=== PATIENT | female | born 1995 | race African-American/Black ===

== ENCOUNTER 2016-09-08 16:46 | Emergency (ER) | payer MEDICAID ==
[~2016-09-08] VITALS: Ht 160 cm; Wt 100.0 kg
[2016-09-08 16:47] VITALS: BP 142/78; PULSE 90; RESP 18; TEMP 98.8; O2SAT 99
--- NOTE | 2016-09-08 16:54 | PD ---
Physical Exam Time Seen by Provider: 16:53 Narrative 20 y/o female here with lower back pain for 2 days. denies injury. Denies any associated symptoms. Vital signs reviewed. Seen at triage desk. Awaiting bed placement. Data Data Last Documented VS Vital Signs Date Time Temp Pulse Resp B/P Pulse Ox O2 Delivery O2 Flow Rate FiO2 09/08/16 16:47 98.8 90 18 142/78 99 Room Air [facility] Medical Record Reviewed: Yes Supervised Visit with ALTA: Janusz Best Sep 08, 2016 16:54
[2016-09-08 17:38] LABS: BLOOD, URINE MOD (NEG); COMMENT (UR) CULTURE INDICATED; CULTURE IF INDICATED CULTURE INDICATED; GLUCOSE,URINE NEG (NEG); KETONE, URINE NEG (NEG); NITRITE,URINE NEG (NEG); PH, URINE 7.5 (5.0-8.5); SQUAMOUS EPITHELIAL CELL URINE 2 /hpf (0-5); TRANSITIONAL EPI CELLS, URINE 2 /hpf; URINE COLOR YELLOW (YELLW/STRAW)
--- NOTE | 2016-09-08 19:27 | PD ---
HPI Chief Complaint: Back/ Neck Pain or Injury Time Seen by Provider: 19:22 Travel History International Travel<30 days: No Contact w/Intl Traveler<30days: No Traveled to known affect area: No History of Present Illness HPI Patient comes in complaining of low back pain began 2 days ago. Patient has associated suprapubic abdominal pain that began yesterday. Pain is sharp/spasm like in nature without radiation. Patient states she noticed gross hematuria today and decided to come to the emergency department for further evaluation. Denies any fevers, nausea, vomiting, vaginal discharge, chest pain, shortness of breath, , or anything making it better or worse. Denies any radiation of the pain. Patient denies trying anything for this prior coming emergency department. [facility] Past Medical History Medical History: Denies Significant Hx Social History Tobacco Use: No Substance Use: No Allergies-Medications (Allergen,Severity, Reaction): Coded Allergies: No Known Allergies (Unverified , 09/08/16) Reported Meds & Prescriptions Reported Meds & Active Scripts Active Bactrim DS (Sulfamethoxazole-Trimethoprim) 800-160 Mg Tab 1 Tab PO BID Review of Systems Except as stated in HPI: all other systems reviewed are Neg Physical Exam Narrative GENERAL: Well-developed, overly nourished, in no acute distress, and non-ill appearing. SKIN: Focused skin assessment warm and dry. HEAD: Atraumatic. Normocephalic. EYES: Pupils equal and round. EOMI. No scleral icterus. No injection or drainage. ENT: No nasal bleeding or discharge. Mucous membranes pink and moist. NECK: Trachea midline. Supple. No nuclear rigidity. CARDIOVASCULAR: Regular rate and rhythm. No murmur appreciated. RESPIRATORY: No accessory muscle use. No respiratory distress. Clear to auscultation. Breath sounds equal bilaterally. GASTROINTESTINAL: Abdomen soft, nondistended, and no guarding. Hepatic and splenic margins not palpable. Normal bowel sounds 4. No pulsatile mass. No CVA tenderness. Patient reports minimal tenderness to palpation suprapubic. MUSCULOSKELETAL: No obvious deformities. No clubbing. No cyanosis. No edema. Full range of motion. NEUROLOGICAL: Awake and alert. No obvious cranial nerve deficits. Motor grossly within normal limits. Normal speech. PSYCHIATRIC: Appropriate mood and affect; insight and judgment normal. Data Data Last Documented VS Vital Signs Date Time Temp Pulse Resp B/P Pulse Ox O2 Delivery O2 Flow Rate FiO2 09/08/16 16:47 98.8 90 18 142/78 99 Room Air Orders Urinalysis - C+S If Indicated (09/08/16 16:55) Ed Urine Pregnancytest Poc (09/08/16 16:55) Urine Culture (09/08/16 17:00) Ct Abd/Pel W/O Iv Contrast (09/08/16 19:21) Labs Laboratory Tests Test 09/08/16 17:00 Urine Color YELLOW Urine Turbidity HAZY Urine pH 7.5 Urine Specific Kirk 1.018 Urine Protein 30 mg/dL Urine Glucose (UA) NEG mg/dL Urine Ketones NEG mg/dL Urine Occult Blood MOD Urine Nitrite NEG Urine Bilirubin NEG Urine Urobilinogen LESS THAN 2.0 MG/DL Urine Leukocyte Esterase LARGE Urine RBC /hpf Urine WBC /hpf Urine Squamous Epithelial 2 /hpf Cells Urine Transitional Epithelial 2 /hpf Cells Urine Amorphous Sediment RARE Microscopic Urinalysis Comment CULTURE INDICATED MDM Medical Decision Making Medical Screen Exam Complete: Yes Emergency Medical Condition: Yes Differential Diagnosis UTI, renal calculi, muscle spasm, Prevacid, other Narrative Course There is no evidence of pyelonephritis. The patient is tolerating fluids and no fever. There is no clinical evidence to suggest atypical cervicitis, PID, appendicitis. The patient was discharged on antibiotics and given warnings to return if condition worsens in any way, fever, vomiting and unable to tolerate medications or fluids, worsening back pain or as needed. The patient was instructed to follow up with their physician. The patient agrees with plan of care. Patient in no obvious distress upon re-evaluation. All pertinent laboratory/ Radiology result(s) discussed with patient. Patient was asked if they wanted to speak to my attending, which the patient did not wish to do at this time. Any questions/concerns in reference to patient diagnosis/condition discussed and clarified prior to patient's discharge. Reinforced sheer importance of close follow up with patient's primary physician or primary care clinic. Instructed patient to return to ED immediately, if symptoms return/worsen. Pt showed understanding of above instructions. Further instructions and recommendations were detailed in discharge paperwork. Pt ambulated without difficulty out of ED at discharge. Diagnosis Primary Impression: UTI (urinary tract infection) Qualified Code: N39.0 - Urinary tract infection with hematuria, site unspecified Patient Instructions: General Instructions, Urinary Tract Infection in Women ( [place]) Additional Instructions: Follow-up with your primary care physician in 5-7 days for reevaluation. Take all medication as prescribed. Return to the emergency department if symptoms get worse. Med/Other Pt SpecificInfo: Prescription(s) given Scripts Sulfamethoxazole-Trimethoprim (Bactrim DS)800-160 Mg Tab1 Tab PO BID #20 TAB Ref 0 Prov:Anthony Florian MD 09/08/16 Disposition: 01 DISCHARGE HOME Condition: Stable [place] Mayer Sep 08, 2016 19:27
--- NOTE | 2016-09-08 20:33 | RADRPT ---
EXAM DATE/TIME: 09/08/2016 20:16 [facility] COMPARISON: No previous studies available for comparison. INDICATIONS : Left lower quadrant pain. ORAL CONTRAST: No oral contrast ingested. RADIATION DOSE: 12.31 CTDIvol (mGy) MEDICAL HISTORY : None SURGICAL HISTORY : None. ENCOUNTER: Initial ACUITY: 3 days PAIN SCALE: 5/10 LOCATION: Left abdomen TECHNIQUE: Volumetric scanning of the abdomen and pelvis was performed. Using automated exposure control and ad justment of the mA and/or kV according to patient size, radiation dose was kept as low as reasonably achievable to obtain optimal diagnostic quality images. DICOM format image data is available electro nically for review and comparison. FINDINGS: Lung bases are clear. No acute findings in the liver, spleen, adrenals, kidneys and pancreas. No free fluid. No bowel obstruction. No adenopathy. No acute bony abnormalities. CONCLUSION: 1. No acute findings. Bora Tirado MD on September 08, 2016 at 20:26 Board Certified Radiologist. This report was verified electronically.
[2016-09-08] MEDS ORDERED: BACT800T5 PO (20:44)
== END 2016-09-08 21:07 | disposition home or self-care (01) ==
LOC: NEPK 16:46
DX: N39.0 Urinary tract infection, site not specified (principal); B96.4 Proteus (mirabilis) (morganii) as the cause of diseases classified elsewhere
CPT/HCPCS: 74176; 81001; 84703; 87077; 87086; 87186

== ENCOUNTER 2017-07-26 13:44 | Emergency (ER) | payer MEDICAID ==
[~2017-07-26] VITALS: Ht 162.6 cm; Wt 100.0 kg
[~2017-07-26 13:44] MED LIST: BACT800T5 PO; METR-1 PO
[2017-07-26 13:45] VITALS: BP 153/89; PULSE 99; RESP 16; TEMP 98.1; O2SAT 100
[2017-07-26] MEDS ORDERED: KETOROLAC TROMETHAMINE 60 MG/2 ML (IM) VIAL IM ONE (14:15)
--- NOTE | 2017-07-26 14:23 | PD ---
HPI Chief Complaint: Abdominal Pain Time Seen by Provider: 14:11 Travel History International Travel<30 days: No Contact w/Intl Traveler<30days: No Traveled to known affect area: No History of Present Illness HPI Patient is 21-year-old female presenting to the emergency department for evaluation of menstrual cramping. Patient states it has been ongoing for 2 days. She reports a normal menstrual flow. Patient states she took a Jocelyne aspirin with no relief of her symptoms. She states this is the first time she has had cramps this bad. She rates it an 8 out of 10, obviously cramping in nature. No alleviating factors. Symptom onset was sudden, symptoms are constant. [facility] Past Medical History Medical History: Denies Significant Hx Diminished Hearing: No Immunizations Current: Yes ?: Not Past Surgical History Surgical History: No Previous Surgery Social History Alcohol Use: No Tobacco Use: No Substance Use: No Allergies-Medications (Allergen,Severity, Reaction): Coded Allergies: No Known Allergies (Unverified Adverse Reaction, Unknown, 07/26/17) Reported Meds & Prescriptions Reported Meds & Active Scripts Active Review of Systems Except as stated in HPI: all other systems reviewed are Neg Genitourinary: Positive: Pelvic Pain (Cramping) Physical Exam Narrative GENERAL: Well-developed, well-nourished, alert female. Appears uncomfortable, no acute distress. SKIN: Warm and dry. HEAD: Atraumatic. Normocephalic. EYES: Pupils equal and round. No scleral icterus. No injection or drainage. ENT: No nasal bleeding or discharge. Mucous membranes pink and moist. NECK: Trachea midline. No JVD. CARDIOVASCULAR: Regular rate and rhythm. RESPIRATORY: No accessory muscle use. Clear to auscultation. Breath sounds equal bilaterally. GASTROINTESTINAL: Abdomen soft, non-tender, nondistended. Hepatic and splenic margins not palpable. No rebound, no guarding. MUSCULOSKELETAL: Extremities without clubbing, cyanosis, or edema. No obvious deformities. NEUROLOGICAL: Awake and alert. No obvious cranial nerve deficits. Motor grossly within normal limits. Five out of 5 muscle strength in the arms and legs. Normal speech. PSYCHIATRIC: Appropriate mood and affect; insight and judgment normal. Data Data Last Documented VS Vital Signs Date Time Temp Pulse Resp B/P (MAP) Pulse Ox O2 Delivery O2 Flow Rate FiO2 07/26/17 13:45 98.1 99 16 153/89 (110) 100 Orders Orders Ketorolac Inj (Toradol Inj) (07/26/17 14:15) Acetaminophen (Tylenol) (07/26/17 15:00) Ondansetron Odt (Zofran Odt) (07/26/17 15:00) MDM Medical Decision Making Medical Screen Exam Complete: Yes Emergency Medical Condition: Yes Interpretation(s) Vital Signs Date Time Temp Pulse Resp B/P (MAP) Pulse Ox O2 Delivery O2 Flow Rate FiO2 07/26/17 13:45 98.1 99 16 153/89 (110) 100 Differential Diagnosis Menstrual cramping versus normal examination versus dysfunctional uterine bleeding versus other Narrative Course Patient is a 21-year-old female presenting with 2 days of menstrual cramping. Patient's vital signs are stable, she will be given Toradol at this time. Patient continued to complain of pain, she was given oral acetaminophen and Zofran. Patient is requesting to be discharged home. She was encouraged to ibuprofen as directed for cramping. She was advised that this works best when taken consistently at the correct dosing. She was encouraged to follow-up with her nsh teacher return to emergency department for any new or worsening symptoms. Patient mother verbalized understanding of instructions. Patient stable for discharge. Diagnosis Primary Impression: Severe menstrual cramps Referrals: [facility] 1 week Patient Instructions: General Instructions Additional Instructions: Follow-up with her nsh teacher Take ibuprofen as directed and as needed for pain Return to emergency department for any new or worsening symptoms Med/Other Pt SpecificInfo: Prescription(s) given Scripts Ibuprofen (Ibuprofen) 800 Mg Tab 800 MG PO Q6HR Y for PAIN, #40 TAB 0 Refills Prov: Racquel Dwyer 07/26/17 Disposition: 01 DISCHARGE HOME Condition: Stable Racquel Dwyer Jul 26, 2017 14:23
[2017-07-26] MEDS ORDERED: ACETAMINOPHEN 325 MG TAB PO ONE (15:00)
[2017-07-26] MEDS ORDERED: ONDANSETRON ODT 4 MG TAB PO ONE (15:00)
--- NOTE | 2017-07-26 15:36 | PD ---
Physical Exam Date Seen by Provider: Jul 26, 2017 Narrative This patient presents with a chief complaint of menstrual cramps. She does not have any other worrisome symptoms. The pain has been unrelieved by aspirin. Data Data Last Documented VS Vital Signs Date Time Temp Pulse Resp B/P (MAP) Pulse Ox O2 Delivery O2 Flow Rate FiO2 07/26/17 13:45 98.1 99 16 153/89 (110) 100 Orders Orders Ketorolac Inj (Toradol Inj) (07/26/17 14:15) Acetaminophen (Tylenol) (07/26/17 15:00) Ondansetron Odt (Zofran Odt) (07/26/17 15:00) MDM Supervised Visit with ALTA: Yes Narrative Course I, Dr. Trotter, have reviewed the advance practice practitioner's documentation and am in agreement, met with the patient face to face, made the diagnosis, and the medical decision making was done by me. *My assessment and Findings: Patient is sitting up in the bed in no acute distress. Please see Raqcuel Parrish NP's note for a more detailed H&P, final diagnosis and disposition Sheri Trotter MD Jul 26, 2017 15:36
[2017-07-26] MEDS ORDERED: IBUP1TAB7 PO (16:22)
== END 2017-07-26 16:35 | disposition home or self-care (01) ==
LOC: NEPD 13:44
DX: N94.6 Dysmenorrhea, unspecified (principal); Z79.82 Long term (current) use of aspirin
CPT/HCPCS: 99283; J1885